=== PATIENT | female | born 1935 | race Caucasian/White ===

== ENCOUNTER → 2016-12-06 | Outpatient (CLI) | payer MEDICARE, OTHER ==
[~2016-12-06] MED LIST: BONIVA150 MG PO; COLACE-DPS100 MG PO; DAILY MULTIPLE1 EAC1 PO; DEPAKOTE ER500 MG PO; DEPAKOTE500 MG PO; DEXILANT60 MG PO; DULERA 200/58.8 GM IH; DUONEB DPS3 ML IH; EXELON1 EAC2 TD; FLONASE 0.05% D16 GM NS; LEVOTHYROXINE75 MCG PO; MAALOX DPS30 ML PO; NAMENDA10 MG PO; PEPCID DPS20 MG PO; PROTONIX40 MG PO; RIFADIN300 MG PO; RYTARY ER 36.21 EACH PO; SPIRIVA18 MCG IH; SPIRIVA18 MCG PO; SURFAK DPS240 MG PO; SYNTHROID75 MCG PO; THERA1 EACH PO; TOPROL XL DPS25 MG PO; TOPROL XL25 MG PO; TYLENOL DPS325 MG PO; VIMPAT100 MG PO; ZITHROMAX250 MG PO; ZITHROMAX500 MG PO; [UNRECOGNIZED DRUG - OTHER] PO
== END | disposition home or self-care (01) ==
LOC: PTH.S 12-05 15:00
DX: J18.9 Pneumonia, unspecified organism (principal)